=== PATIENT | male | born 1955 ===

== ENCOUNTER 2018-02-27 08:49 | Inpatient (IN) | payer OTHER ==
[~2018-02-27] VITALS: Ht 175.3 cm; Wt 63.5 kg
[2018-02-27] MEDS ORDERED: B-100 COMPLEX100 MG (09:15)
[2018-02-27] MEDS ORDERED: METFORMIN HCL1000 MG (09:15)
[2018-02-27] MEDS ORDERED: FOLIC ACID1 MG (09:15)
[2018-02-27] MEDS ORDERED: OSTERA TABLET1 EACH (09:16)
[2018-03-02] MEDS ORDERED: DEXAMETHASONE4 MG PO (08:33)
[2018-03-02] MEDS ORDERED: Ferro-Plex CAPLET PO (08:33)
[2018-03-02] MEDS ORDERED: RESTORIL15 MG PO (08:33)
[2018-03-02] MEDS ORDERED: METFORMIN HCL1000 MG PO (08:33)
== END 2018-03-02 09:43 | disposition home or self-care (01) | DRG 842 ==
LOC: ER 08:49 → SEC-K 09:57 → MEDI 17:27
PROC: 30233N1 Transfusion of Nonautologous Red Blood Cells into Peripheral Vein, Percutaneous Approach (ICD-10-PCS; 2018-02-27)
PROC: 07DR3ZX Extraction of Iliac Bone Marrow, Percutaneous Approach, Diagnostic (ICD-10-PCS; principal; 2018-02-28)
DX: C83.08 Small cell B-cell lymphoma, lymph nodes of multiple sites (principal); D63.8 Anemia in other chronic diseases classified elsewhere; H54.8 Legal blindness, as defined in USA; E11.9 Type 2 diabetes mellitus without complications

== ENCOUNTER 2018-03-12 16:06 | Emergency (ER) | payer OTHER ==
[~2018-03-12] VITALS: Ht 175.3 cm; Wt 63.5 kg
[~2018-03-12 16:06] MED LIST: B-100 COMPLEX100 MG; DEXAMETHASONE4 MG PO; FOLIC ACID1 MG; Ferro-Plex CAPLET PO; METFORMIN HCL1000 MG; METFORMIN HCL1000 MG PO; OSTERA TABLET1 EACH; RESTORIL15 MG PO
[2018-03-12] MEDS ORDERED: RESTORIL30 M1 (16:25)
== END 2018-03-12 19:05 | disposition home or self-care (01) ==
LOC: ER 16:06
DX: R04.0 Epistaxis (principal); D61.82 Myelophthisis; C83.08 Small cell B-cell lymphoma, lymph nodes of multiple sites; E11.9 Type 2 diabetes mellitus without complications